=== PATIENT | female | born 1990 | race Caucasian/White ===

== ENCOUNTER 2021-06-10 18:44 | Emergency (ER) | payer OTHER ==
[~2021-06-10] VITALS: Ht 152.4 cm; Wt 48.5 kg
[2021-06-10 18:57] VITALS: BP_SYST 124
--- NOTE | 2021-06-10 19:00 | NUR ---
Pt brought by self, A&Ox4, pt presents to ER with wheezing and cough after inhaling a chemical at work/ states [employer] cleaning substance, pt has Hx of asthma, O2 96%, skin pink and warm, cap refill <3, VSS.
--- NOTE | 2021-06-10 19:00 | NUR ---
Patient triaged and placed in waiting room. VSS and patient appears in no acute distress at this time. Accompanied by self, awaiting available bed, and MD notified of need for MSE.
[2021-06-10] MEDS ORDERED: DIPHENHYDRAMINE HCL 50 MG CAPSULE PO ONE (19:30)
[2021-06-10] MEDS ORDERED: ALBUTEROL MDI INHALATION 8 GM INH INH PRN (19:30)
[2021-06-10] MEDS ORDERED: DECADRON 4 MG TABLET PO ONE (19:30)
--- NOTE | 2021-06-10 19:34 | NUR ---
Dr Lyman evaluating patient at bedside
[2021-06-10] MEDS ORDERED: IPRATROPIUM/ALBUTEROL SULFATE 3 ML AMPUL.NEB (DUONEB) INH ONE (21:30)
[2021-06-10] MEDS ORDERED: PRED20TA PO (22:33)
[2021-06-10] MEDS ORDERED: DECADRON 4 MG TABLET ONE (22:33)
[2021-06-10] MEDS ORDERED: DIPHENHYDRAMINE HCL 25 MG CAPSULE ONE (22:34)
[2021-06-10] MEDS ORDERED: FAMOTIDINE 20 MG TABLET ONE (22:35)
[2021-06-10] MEDS ORDERED: FAMOTIDINE 20 MG TABLET PO ONE (22:45)
[2021-06-10 22:47] VITALS: BP_SYST 118
--- NOTE | 2021-06-10 22:47 | NUR ---
Patient given written and verbal discharge instructions and verbalizes understanding. ER MD discussed with patient the results and treatment provided. Patient in stable condition. ID arm band removed. IV catheter removed intact and dressing applied, no active bleeding. RX OF PREDNISONE given. Patient educated on pain management and to follow up with PMD. Pain Scale 0/10 Opportunity for questions provided and answered. Medication side effect fact sheet provided.
== END 2021-06-10 22:47 | disposition home or self-care (01) ==
LOC: SED 18:44
DX: R06.2 Wheezing (principal); F12.90 Cannabis use, unspecified, uncomplicated; Z77.098 Contact with and (suspected) exposure to other hazardous, chiefly nonmedicinal, chemicals; Z79.899 Other long term (current) drug therapy
CPT/HCPCS: 71045; 94640; 99284; J8540; Q0163